=== PATIENT | female | born 1980 | race Caucasian/White ===

== ENCOUNTER 2017-03-24 16:30 | Emergency (ER) | payer OTHER ==
[2017-03-24] MEDS ORDERED: ALTEPLASE 100 MG/100 ML VIAL IV ONE (16:58)
--- NOTE | 2017-03-24 17:01 | CT REPORT ---
HISTORY: Altered mental status. COMPARISON: None. TECHNIQUE: Axial non-contrast images obtained from skull vertex through foramen magnum. Dose reduction technique was utilized. FINDINGS: There is no atrophy. There is no hemorrhage. There is no hydrocephalus. No mass lesion is identifi ed. Kumari white differentiation adequate, there is no infarction. No midline shift is identified. T he paranasal sinuses are clear. IMPRESSION: Normal CT of the head. No evidence of acute intracranial hemorrhage or large vessel acute territorial infarct. Critical results communicated to Dr. Marlow at 5:05 PM on 03/24/2017. Final Electronic Signature: This report was electronically signed by Isaiah Pardo MD on 03/24/20 17 4:59 PM. luisa /
[2017-03-24 17:03] LABS: BLOOD UREA NITROGEN 16 mg/dL (7-17); CALCIUM 9.7 mg/dL (8.4-10.2); CHLORIDE 105 mmol/L (98-107); CREATININE 0.7 mg/dL (0.5-1.0); EST GLOMERULAR FILTRATION RATE > 60 mL/min; GLUCOSE 89 mg/dL (70-100); POTASSIUM 3.7 mmol/L (3.5-5.1); SODIUM 143 mmol/L (137-145)
[2017-03-24 17:04] LABS: EOSINOPHILS 1.4 % (0.0-6.0); EOSINOPHILS# 0.2 X 10^3uL (0.0-0.4)
[2017-03-24 17:05] LABS: INR 0.9
[2017-03-24 17:07] LABS: BASOPHIL# 0.1 X 10^3uL (0.0-0.1); BASOPHILS 0.8 % (0.0-2.0); LYMPHOCYTES 25.4 % (20.0-40.0); LYMPHOCYTES# 4.5 X 10^3uL (0.8-3.8); MEAN CELL VOLUME 90.2 fL (80.0-100.0); MEAN CORPUS. HGB CONCENTRATION 37.2 g/dL (32.0-36.0); MEAN CORPUSCULAR HEMOGLOBIN 33.6 pg (29.0-35.0); MEAN PLATELET VOLUME 8.8 fL (7.4-10.4); MONOCYTES 5.3 % (2.0-10.0); MONOCYTES# 0.9 X 10^3uL (0.2-1.0); NEUTROPHILS 67.1 % (54.0-75.0); PLATELET COUNT 750 X 10^3uL (130-440); RED BLOOD COUNT 5.22 X 10^6uL (4.20-6.10); RED CELL DISTRIBUTION WIDTH 12.3 % (11.5-14.5); WHITE BLOOD COUNT 17.7 X 10^3uL (3.9-10.7)
[2017-03-24 17:24] LABS: HEMATOCRIT 49.2 % (36.0-48.0); HEMOGLOBIN 16.8 g/dL (12.0-16.0)
--- NOTE | 2017-03-24 17:26 | ER PHYSICIAN DOCUMENTATION ---
Physician Documentation [facility] Name:Sury Alvarado Age:36 yrs Sex:Female :1980 Arrival Date:03/24/2017 Time:16:30 BedTrauma-B Private MD: Jericho Linda Disposition: 03/24/17 17:14 Transfer ordered to [facility]. 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 - Reason for transfer: Higher level of care. - Accepting physician is Dr. Pardo. - Condition is Serious. - Problem is new. - Symptoms are unchanged. COBRA Form completed? Yes Transfer - Mode of Transportation Ambulance HPI: 03/24 16:44 This 36 yrs old Female presents to ER via Private Vehicle with complaints of jm Slurred Speech. 16:44 This 36 yrs old Female presents to ER via Private Vehicle with complaints of jm Slurred Speech. 16:44 The patient presents to the emergency department with a speech or higher order brain jm function problem, aphasia, that is moderate. Historical: - Allergies: No known drug Allergies; - Home Meds: 1. control pills 2. volsarten - PMHx: thrombocytosis with platelet levels 700,000 to 800,000; - PSHx: splenectomy; CHOLECYSECTOMY; - Tetanus: unknown. - Ebola Screening: : Patient negative for fever greater than or equal to 101.5 degrees Fahrenheit, and additional compatible Ebola Virus Disease symptoms. Patient denies exposure to infectious person. Patient denies travel to an Ebola-affected area in the 21 days before illness onset. No symptoms or risks identified at this time. . - Immunization history: Unable to Obtain. - Social history: Smoking status: Patient states was never smoker of tobacco. ROS: 17:00 Constitutional: Negative for fever. jm 17:00 Neuro: Positive for speech changes. 17:00 All other systems are negative. Exam: 17:02 Constitutional: The patient appears alert, awake, anxious. 17:02 Eyes: Periorbital structures: appear normal, Pupils: equal, round, and reactive to light and accomodation, Extraocular movements: intact throughout. 17:02 Neck: Thyroid: appears normal, Trachea: is midline with no obvious abnormalities. 17:02 Cardiovascular: Rate: tachycardic, Rhythm: regular. 17:02 Respiratory: Respirations: normal, Breath sounds: are normal. 17:02 Abdomen/GI: Bowel sounds: normal, Palpation: abdomen is soft and non-tender. 17:02 Musculoskeletal/extremity: ROM: intact in all extremities, Weight bearing: able to fully bear weight. 17:02 Neuro: Orientation: is normal, Mentation: is normal, Cerebellar function: normal finger to nose testing, Motor: strength is 5/5 in all extremities, Sensation: is normal, Pt w classic expressive aphasia and moderate dysarthria. . 17:02 Psych: Behavior/mood is pleasant, cooperative, anxious, Affect is calm. Vital Signs: 16:37 BP 174 / 99; Pulse 129; Resp 20; Pulse Ox 95% on R/A; Pain 0/10; rs 16:48 BP 149 / 97; Pulse 120; Resp 18; Pulse Ox 94% on R/A; Pain 0/10; rs 16:50 BP 169 / 96; Pulse 123; Resp 14; Temp 98.7; Pulse Ox 97% on 2 lpm NC; Weight 63.5 kg; rs Height 5 ft. 3 in. (160.02 cm); Pain 0/10; 16:54 BP 169 / 96; Pulse 114; Resp 20; Temp 97.5; Pulse Ox 97% ; jt 16:50 Body Mass Index 24.80 (63.50 kg, 160.02 cm) rs NIH Stroke Scale Scores: 16:52 NIHSS Score: 2 lc 17:15 NIHSS Score: 0 rs MDM: 16:32 Patient medically screened. 17:03 Neurological re-evaluation: all normal except: aphasia. The patient was last known to be well at March 24, 2017 at 16:15. Thrombolytics: Patient received thrombolytic within the Emergency Department. Data reviewed: vital signs, nurses notes, lab test result(s), EKG, radiologic studies, and as a result, I will *Transfer Patient. Test interpretation: by ED physician or midlevel provider: ECG. Counseling: I had a detailed discussion with the patient and/or guardian regarding: the historical points, exam findings, and any diagnostic results supporting the discharge/admit diagnosis, lab results, radiology results, the need to transfer to another facility, for higher level of care, [facility] does not immediately have the required specialist. Physician consultation: Dr Carl was called at 16:45, was contacted at 16:47, regarding transfer- will see in [facility] ER. . ED course: CT read back by JOSE FRANCISCO Pardo at 16.57. Tpa Mixed and given 2 minutes later. Pt will go by ambulance as there is no flight available due to weather. . 03/24 17:04 Order name: BASIC METABOLIC PANEL [facility] 03/24 17:07 Order name: PROTIME/INR [facility] 03/24 17:25 Order name: CBC AUTO DIF, MDIF/RMOR IF IND [facility] 03/24 17:45 Order name: HCG, SERUM [facility] 03/24 16:49 Order name: CAT SCAN; HEAD W/O CON [id number] [facility] 03/24 17:03 Order name: CAT SCAN; HEAD W/O CON [id number] [facility] 03/24 16:36 Order name: 12-lead EKG; Complete Time: 17:01 03/24 16:36 Order name: Continuous Cardiac Monitoring; Complete Time: 17: 03/24 16:36 Order name: I & O; Complete Time: 17: 03/24 16:36 Order name: IV saline lock X2; Complete Time: 17: 03/24 16:36 Order name: NIH Stroke Scale; Complete Time: 17:01 03/24 16:36 Order name: NPO; Complete Time: 17: 03/24 16:36 Order name: Pulse Ox Continuous; Complete Time: 17: 03/24 16:36 Order name: Stroke Team Activation Overhead; Complete Time: 17: 03/24 16:36 Order name: Accucheck; Complete Time: 17: 03/24 16:59 Order name: tPA: Check with 1st < giving; Consent signed?; Complete Time: 17:06 Dispensed Medications: 17:00 Drug: tPA BOLUS - Alteplase 1 application; {Note: by Jessica Ruiz RN.} Route: IVP; Rate: rs 5.7 bolus; Infused Over: 1 mins; Site: left hand; 17:37 Follow up: Response: No adverse reaction 17:03 Drug: tPA DRIP - Alteplase 1 application; {Note: given by Jessica MCALLISTER} Volume: 51.5 ml; rs Route: IV; Rate: calculated rate; Infused Over: 1 hrs; Site: left hand; Delivery: IVPB Tubing; 17:37 Follow up: Response: No adverse reaction rs Point of Care Testing: Blood Glucose: 16:37 Blood Glucose: 86 mg/dL; rs 16:50 Blood Glucose: 86 mg/dL; Ranges: Critical Glucose Levels:Adult <50 mg/dl or >400 mg/dl <40 mg/dl or >180 mg/dl Critical care time excluding procedures: 17:13 Critical care time: Bedside Care: 30 minutes, Consultation: 10 minutes, Family jm Intervention: 5 minutes. Total time: 45 minutes NIH Stroke Scale - NIH Stroke Score Date: 03/24/2017 Time: 16:52 Total Score = 2 1a. Level of Consciousness (LOC) - 0(Alert) 1b. Level of Consciousness (LOC) (Year & Age) - 0(Both) 1c. LOC Commands (Open & Closes Eyes/Lean [employer] Sigma Black Belt) - 0(Both) 2. Best Gaze (Lateral Gaze Paresis) - 0(Normal) 3. Visual Field Loss - 0(No visual loss) 4. Facial Palsy - 0(Normal) 5a. Left Arm: Motor (10-second hold) - 0(No drift) 5b. Right Arm: Motor (10-second hold) - 0(No drift) 6a. Left Leg: Motor (5-second hold ? always test supine) - 0(No drift) 6b. Right Leg: Motor (5-second hold ? always test supine) - 0(No drift) 7. Limb Ataxia (finger/nose & heel/garcia ? test with eyes open) - 0(Absent) 8. Sensory Loss (pinprick arms/legs/face) - 0(Normal) 9. Best Language: Aphasia (description/naming/reading) - 1(Mild to moderate aphasia) 10. Dysarthria (speech clarity ? read or repeat words) - 1(Mild to Moderate) 11. Extinction and Inattention (visual/tactile/auditory/spatial/personal) - 0(No abnormality) Initials: NIH Stroke Scale - NIH Stroke Score Date: 03/24/2017 Time: 17:15 Total Score = 0 1a. Level of Consciousness (LOC) - 0(Alert) 1b. Level of Consciousness (LOC) (Year & Age) - 0(Both) 1c. LOC Commands (Open & Closes Eyes/Lean [employer] Sigma Black Belt) - 0(Both) 2. Best Gaze (Lateral Gaze Paresis) - 0(Normal) 3. Visual Field Loss - 0(No visual loss) 4. Facial Palsy - 0(Normal) 5a. Left Arm: Motor (10-second hold) - 0(No drift) 5b. Right Arm: Motor (10-second hold) - 0(No drift) 6a. Left Leg: Motor (5-second hold ? always test supine) - 0(No drift) 6b. Right Leg: Motor (5-second hold ? always test supine) - 0(No drift) 7. Limb Ataxia (finger/nose & heel/garcia ? test with eyes open) - 0(Absent) 8. Sensory Loss (pinprick arms/legs/face) - 0(Normal) 9. Best Language: Aphasia (description/naming/reading) - 0(No aphasia) 10. Dysarthria (speech clarity ? read or repeat words) - 0(Normal) 11. Extinction and Inattention (visual/tactile/auditory/spatial/personal) - 0(No abnormality) Initials: rs Signatures: Shantelle Adame RN RN rs Meyer, John, MD MD
--- NOTE | 2017-03-24 17:26 | ER NURSING DOCUMENTATION ---
Nurse's Notes [facility] Name:Sury Alavrado Age:36 yrs Sex:Female :1980 Arrival Date:03/24/2017 Time:16:30 BedTrauma-B Private MD: Diagnosis:Aphasia from CVA Presentation: 03/24 16:32 Presenting complaint: Patient states: Cannot speak, moving arms and legs normally, rs balance normal. Is an RN, and hx of hypercoagulable. Transition of care: patient was not received from another setting of care. Time Last Known Well for patient was Time symptoms bagamn. Time Last Known Well for patient was Symptoms began at 1615 today (20 min ago). An acute neurological deficit is present. Notified ED Physician of patient's arrival and CC Kashmir Arana notified. 16:32 Acuity: SHORTY 2 rs 16:32 Method Of Arrival: Private Vehicle rs Triage Assessment: 16:35 Neuro: Reports difficulty speaking. Denies weakness blurred vision dizziness, rs difficulty swallowing, paresthesias numbness. 16:42 The onset of the patients symptoms was less than three hours ago. General: Appears in rs no apparent distress, well developed, well nourished, well groomed, Behavior is cooperative. Pain: Denies pain. Neuro: Level of Consciousness is awake, alert, Oriented to person, place, time, event, Blueprint Tracer are equal bilaterally Moves all extremities. Gait is steady, Speech with expressive aphasia noted. Cardiovascular: No deficits noted. Capillary refill < 3 seconds Pulses are 3+ in right radial artery. Respiratory: No deficits noted. Airway is patent Respiratory effort is even, unlabored, Respiratory pattern is regular, symmetrical. Derm: No deficits noted. Skin is pink, warm & dry. Stroke Activation: Symptom onset < 3 hours Physician: ED Attending; Name: Jericho Marlow MD; Notified At: 16:34; Arrived At: Physician: master in chancery; Name: Norbert; Notified At: 16:34; Arrived At: Physician: Health Club Manager; Name: Justa; Notified At: 16:34; Arrived At: Physician: [not used]; Name: ; Notified At: ; Arrived At: Physician: [not used]; Name: ; Notified At: ; Arrived At: Historical: - Allergies: No known drug Allergies; - Home Meds: 1. control pills 2. volsarten - PMHx: thrombocytosis with platelet levels 700,000 to 800,000; - PSHx: splenectomy; CHOLECYSECTOMY; - Tetanus: unknown. - Ebola Screening: : Patient negative for fever greater than or equal to 101.5 degrees Fahrenheit, and additional compatible Ebola Virus Disease symptoms. Patient denies exposure to infectious person. Patient denies travel to an Ebola-affected area in the 21 days before illness onset. No symptoms or risks identified at this time. . - Immunization history: Unable to Obtain. - Social history: Smoking status: Patient states was never smoker of tobacco. Screenin:16 Infectious Disease Risk None. Abuse screen: Denies threats or abuse. Nutritional rs screening: No deficits noted. Assessment: 16:50 Reassessment: Patient states symptoms have improved. informed.. rs Vital Signs: 16:37 BP 174 / 99; Pulse 129; Resp 20; Pulse Ox 95% on R/A; Pain 0/10; rs 16:48 BP 149 / 97; Pulse 120; Resp 18; Pulse Ox 94% on R/A; Pain 0/10; rs 16:50 BP 169 / 96; Pulse 123; Resp 14; Temp 98.7; Pulse Ox 97% on 2 lpm NC; Weight 63.5 kg; rs Height 5 ft. 3 in. (160.02 cm); Pain 0/10; 16:54 BP 169 / 96; Pulse 114; Resp 20; Temp 97.5; Pulse Ox 97% ; jt 16:50 Body Mass Index 24.80 (63.50 kg, 160.02 cm) rs NIH Stroke Scale Scores: 16:52 NIHSS Score: 2 lc 17:15 NIHSS Score: 0 rs ED Course: 16:30 Notified ED Physician of patient's arrival and chief complaint. Dr. Marlow notified. Arm rs band placed on Bed in low position Call Light in Reach Gowned HOB Elevated Side rails up x1. Family accompanied patient. 16:31 Patient arrived in ED. lm3 16:32 Shantelle Adame, APURVA is Primary Nurse. rs 16:32 Jericho Marlow MD is Attending Physician. jm 16:38 CT done EKG done per protocol. Performed by ED Staff. Shown to ED physician. Labs rs ordered per protocol. Drawn by ED staff. 16:39 Triage completed. rs 16:40 EKG done. (by ED staff). Reviewed by Jericho Marlow MD. rs 16:42 Inserted saline lock: 20 gauge in left hand and blood collected. Oxygen Oxygen rs administration via nasal cannula @ 2L/min. 16:45 Cardiac Monitoring On for Nurse Monitoring only. Pulse Ox - RN Monitoring Only NIBP On rs - RN Monitoring Only. Door closed. Noise minimized. Lights dimmed. Verbal reassurance given. Diet: Patient is NPO. 16:49 CAT SCAN; HEAD W/O CON 47013 In Process Unspecified. EDMS 16:49 CAT SCAN; HEAD W/O CON [id number] Sent. siobhan 17:17 Valuables Remains with patient. rs Administered Medications: 17:00 Drug: tPA BOLUS - Alteplase 1 application; {Note: by Jessica Ruiz RN.} Route: IVP; Rate: rs 5.7 bolus; Infused Over: 1 mins; Site: left hand; 17:37 Follow up: Response: No adverse reaction rs 17:03 Drug: tPA DRIP - Alteplase 1 application; {Note: given by Jessica MIXON.} Volume: 51.5 ml; rs Route: IV; Rate: calculated rate; Infused Over: 1 hrs; Site: left hand; Delivery: IVPB Tubing; 17:37 Follow up: Response: No adverse reaction rs Point of Care Testing: Blood Glucose: 16:37 Blood Glucose: 86 mg/dL; rs 16:50 Blood Glucose: 86 mg/dL; lc Ranges: Outcome: 17:00 Instructed on need for transfer Demonstrated understanding of instructions. rs 17:14 ER care complete, transfer ordered by MD. herndon 17:25 Patient left the ED. rs 17:25 Transferred: Patient will be transferred to: [facility]. Facility rs Acceptance Time: March 24, 2017 at 17:00 Patient's face sheet was faxed to accepting facility. Face Sheet included patient's name, address, age, gender, contact information and insurance information. Patient will be transported by: [facility]. Report called to: [facility] Nurse and Physician Charting and Notes were sent to Accepting Facility. All tests and/or procedures with results, if applicable, were sent to accepting facility. 17:25 Condition: improved 17:30 Report given to Sameer MIXON at [facility]. rs NIH Stroke Scale - NIH Stroke Score Date: 03/24/2017 Time: 16:52 Total Score = 2 1a. Level of Consciousness (LOC) - 0(Alert) 1b. Level of Consciousness (LOC) (Year & Age) - 0(Both) 1c. LOC Commands (Open & Closes Eyes/Fretted Instrument Inspector) - 0(Both) 2. Best Gaze (Lateral Gaze Paresis) - 0(Normal) 3. Visual Field Loss - 0(No visual loss) 4. Facial Palsy - 0(Normal) 5a. Left Arm: Motor (10-second hold) - 0(No drift) 5b. Right Arm: Motor (10-second hold) - 0(No drift) 6a. Left Leg: Motor (5-second hold ? always test supine) - 0(No drift) 6b. Right Leg: Motor (5-second hold ? always test supine) - 0(No drift) 7. Limb Ataxia (finger/nose & heel/garcia ? test with eyes open) - 0(Absent) 8. Sensory Loss (pinprick arms/legs/face) - 0(Normal) 9. Best Language: Aphasia (description/naming/reading) - 1(Mild to moderate aphasia) 10. Dysarthria (speech clarity ? read or repeat words) - 1(Mild to Moderate) 11. Extinction and Inattention (visual/tactile/auditory/spatial/personal) - 0(No abnormality) Initials: NIH Stroke Scale - NIH Stroke Score Date: 03/24/2017 Time: 17:15 Total Score = 0 1a. Level of Consciousness (LOC) - 0(Alert) 1b. Level of Consciousness (LOC) (Year & Age) - 0(Both) 1c. LOC Commands (Open & Closes Eyes/Fretted Instrument Inspector) - 0(Both) 2. Best Gaze (Lateral Gaze Paresis) - 0(Normal) 3. Visual Field Loss - 0(No visual loss) 4. Facial Palsy - 0(Normal) 5a. Left Arm: Motor (10-second hold) - 0(No drift) 5b. Right Arm: Motor (10-second hold) - 0(No drift) 6a. Left Leg: Motor (5-second hold ? always test supine) - 0(No drift) 6b. Right Leg: Motor (5-second hold ? always test supine) - 0(No drift) 7. Limb Ataxia (finger/nose & heel/garcia ? test with eyes open) - 0(Absent) 8. Sensory Loss (pinprick arms/legs/face) - 0(Normal) 9. Best Language: Aphasia (description/naming/reading) - 0(No aphasia) 10. Dysarthria (speech clarity ? read or repeat words) - 0(Normal) 11. Extinction and Inattention (visual/tactile/auditory/spatial/personal) - 0(No abnormality) Initials: rs Signatures: Dispatcher [employer] EDShantelle Freeman RN RN rs Coleman, Linda, Jericho Padilla RN, MD MD jm Abbott, Jill Krueger, Chantelle Holley, Key kelly
[2017-03-24] MEDS ORDERED: ONDANSETRON HCL 4 MG/2 ML VIAL ONE (19:58)
[2017-03-24] MEDS ORDERED: ONDANSETRON ODT 4 MG TAB.RAPDIS ONE (19:59)
== END 2017-03-24 17:26 | disposition short-term general hospital (02) ==
LOC: ER 16:30
DX: I63.9 Cerebral infarction, unspecified (principal); R29.702 NIHSS score 2; R00.0 Tachycardia, unspecified
CPT/HCPCS: 70450; 80048; 84703; 85025; 85610; 92977; 93005; 96374; 99285; J2405; J2997